=== PATIENT | male | born 1990 | race Caucasian/White ===

== ENCOUNTER 2025-07-26 03:24 | Inpatient (IN) | payer OTHER ==
[~2025-07-26] VITALS: Ht 172.7 cm; Wt 84.8 kg
[2025-07-26 03:26] VITALS: O2SAT 97
[2025-07-26] MEDS: LORAZEPAM 2MG/ML UD SYRINGE IV NR (03:54)
[2025-07-26] MEDS: LEVETIRACETAM 1000MG PREMIX 100 ML IV ONE (03:54)
[2025-07-26] MEDS: SODIUM CHLORIDE 0.9% 1,000 ML IV ONE (03:56)
[2025-07-26 04:38] LABS: BASOPHILS % 0.5 % (0.0-2.0); EOSINOPHILS % 9.2 % (0.0-5.0); HEMATOCRIT. 43.0 % (42.0-52.0); HEMOGLOBIN. 14.8 g/dL (14.0-18.0); LYMPHOCYTES % 41.4 % (20.0-50.0); MEAN PLATELET VOLUME 8.8 fl (7.4-10.4); MONOCYTES % 8.8 % (2.0-8.0); NEUTROPHILS % 40.1 % (40.0-76.0); PLATELET 213 x1000/uL (130-400); RED BLOOD CELL COUNT 4.99 mill/uL (4.7-6.1); RED CELL DISTRIBUTION WIDTH 13.1 % (11.6-14.6)
[2025-07-26 04:55] LABS: CREATININE 1.2 mg/dL (0.6-1.3); UREA NITROGEN BLOOD 12 mg/dL (9-23)
[2025-07-26 04:56] LABS: ETHANOL BLOOD < 10 mg/dL (<10); PROTEIN TOTAL 7.0 g/dL (6.0-8.3)
[2025-07-26 04:57] LABS: ASPARTATE AMINOTRANSFERASE 22 IU/L (<34)
[2025-07-26 04:58] LABS: BILIRUBIN DIRECT 0.1 mg/dL (<=3.0); BILIRUBIN TOTAL 0.5 mg/dL (0.1-1.0)
[2025-07-26 05:18] LABS: CLARITY URINE CLEAR (CLEAR); COLOR URINE YELLOW (YELLOW); GLUCOSE URINE NEGATIVE (NEGATIVE); KETONES URINE NEGATIVE (NEGATIVE); LEUKOCYTE ESTERASE URINE NEGATIVE (NEGATIVE); NITRITE URINE NEGATIVE (NEGATIVE); OCCULT BLOOD URINE 1+ (NEGATIVE); PH URINE 5.5 (4.5-8.0); PROTEIN URINE NEGATIVE (NEGATIVE); SPECIFIC GRAVITY URINE 1.015 (1.005-1.030); UROBILINOGEN URINE 0.2 E.U./dL (0.2-1.0)
[2025-07-26 05:38] LABS: BACTERIA URINE NONE SEEN; COARSE GRANULAR CASTS URINE 0-5 /lpf; SQUAMOUS EPITHELIAL CELL URINE NONE SEEN /lpf (RARE/1+); WBC URINE NONE SEEN /hpf (0-2)
[2025-07-26 05:44] LABS: *AMPHETAMINES SCREEN URINE NEGATIVE (NEGATIVE); *BENZODIAZEPINES SCREEN URINE NEGATIVE (NEGATIVE)
[2025-07-26 05:45] LABS: *BARBITURATES SCREEN URINE NEGATIVE (NEGATIVE); *COCAINE SCREEN URINE NEGATIVE (NEGATIVE); CANNABINOID URINE SCREEN PRESUMPTIVE POSITIVE (NEGATIVE); ECSTASY MDMA SCREEN URINE NEGATIVE (NEGATIVE); METHADONE URINE SCREEN NEGATIVE (NEGATIVE); OPIATES URINE SCREEN NEGATIVE (NEGATIVE); PHENCYCLIDINE URINE SCREEN NEGATIVE (NEGATIVE)
[2025-07-26] MEDS ORDERED: NALOXONE HCL 0.4MG/ML VIAL IV PRN (06:45)
[2025-07-26] MEDS ORDERED: MORPHINE SULFATE 2 MG/ML INJ (NOT FOR IM USE) IV PRN (06:45)
[2025-07-26] MEDS ORDERED: ZOLPIDEM TARTRATE 5MG TABLET PO PRN (06:45)
[2025-07-26] MEDS ORDERED: MAGNESIUM/ALUMINUM HYDROXIDE/SIMETHICONE 30ML UDC PO PRN (06:45)
[2025-07-26] MEDS ORDERED: ONDANSETRON HCL 4MG/2ML INJ IV PRN (06:45)
[2025-07-26] MEDS ORDERED: ACETAMINOPHEN 325MG TABLET PO PRN (06:45)
[2025-07-26] MEDS ORDERED: HYDROCODONE/ACETAMINOPHEN 5/325MG TABLET PO PRN (06:45)
[2025-07-26] MEDS ORDERED: CLONIDINE 0.1MG TABLET PO PRN (06:45)
[2025-07-26] MEDS ORDERED: LORAZEPAM 2MG/ML UD SYRINGE IV PRN (07:00)
[2025-07-26 08:00] VITALS: BP 117/71; PULSE 69; RESP 18; TEMP 36.3; O2SAT 100
[2025-07-26 09:00] VITALS: BP 117/71; PULSE 69; RESP 18; TEMP 36.3068
[2025-07-26] MEDS: PANTOPRAZOLE SODIUM 40 MG/VIAL IV SCH (10:42)
[2025-07-26] MEDS: ENOXAPARIN 40MG/0.4ML SYR SUBCUT SCH (10:42)
[2025-07-26 12:00] VITALS: BP 106/68; PULSE 70; RESP 18; TEMP 36.4; O2SAT 99
[2025-07-26] MEDS: SODIUM CHLORIDE 0.9% 1,000 ML IV SCH (15:10)
[2025-07-26 16:00] VITALS: BP 111/69; PULSE 72; RESP 18; TEMP 36.6; O2SAT 99
[2025-07-26 17:46] VITALS: BP 112/70; PULSE 72; RESP 18; TEMP 97.8
[2025-07-26] MEDS ORDERED: LEVETIRACETAM 1000MG PREMIX 100 ML IV SCH (21:00)
[2025-07-26] MEDS ORDERED: LEVETIRACETAM 1,000MG in NACL 100ML PREMIX IV SCH (21:00)
== END 2025-07-26 19:30 | disposition left against medical advice (07) | DRG 101 ==
LOC: ER 03:29 → EDBEDREQ 03:59 → 6WST 05:06 → EDBEDREQ 05:10 → EDBEDREQTM 05:10 → ENRESERV 05:23
PROVIDERS: ADMIT Internal Medicine; ATTEND Internal Medicine
DX: R56.9 Unspecified convulsions (principal); D33.0 Benign neoplasm of brain, supratentorial; F19.90 Other psychoactive substance use, unspecified, uncomplicated; S01.512A Laceration without foreign body of oral cavity, initial encounter; Z72.820 Sleep deprivation; X58.XXXA Exposure to other specified factors, initial encounter; Z53.29 Procedure and treatment not carried out because of patient's decision for other reasons; Y93.89 Activity, other specified; Y92.89 Other specified places as the place of occurrence of the external cause; Y99.8 Other external cause status
CPT/HCPCS: 36415; 80048; 80076; 80305; 80320; 81003; 83735; 85025; 93005; 96365; 96375; 99285; J1650; J1953; J2060; J2470; J7030; G0480